=== PATIENT | female | born 1990 | race African-American/Black ===

== ENCOUNTER 2022-08-20 08:51 | Emergency (ER) | payer MEDICAID ==
[~2022-08-20] VITALS: Ht 162.6 cm; Wt 83.0 kg
[2022-08-20 08:59] VITALS: BP 151/79
[2022-08-20] MEDS ORDERED: PREDNISONE 20MG TABLET PO STA (09:12)
[2022-08-20] MEDS ORDERED: IPRATROPIUM BROMIDE (0.02%) 0.5MG/2.5ML NEB HHN STA (09:12)
[2022-08-20] MEDS ORDERED: ALBUTEROL (0.083%) 2.5MG/3ML NEB HHN STA (09:12)
[2022-08-20] MEDS ORDERED: P50 MT (10:00)
[2022-08-20] MEDS ORDERED: ALBU6.7H3 INH (10:00)
[2022-08-20] MEDS ORDERED: GUAI600T26 MT (10:00)
[2022-08-20] MEDS ORDERED: IBUP-2029 MT (10:05)
== END 2022-08-20 11:13 | disposition home or self-care (01) ==
LOC: ER 08:51
DX: J06.9 Acute upper respiratory infection, unspecified (principal); Z88.0 Allergy status to penicillin
CPT/HCPCS: 71045; 94644; 99285; J7512; Z7610

== ENCOUNTER 2022-11-19 11:11 | Emergency (ER) | payer MEDICAID ==
[~2022-11-19] VITALS: Ht 162.6 cm; Wt 85.4 kg
[~2022-11-19 11:11] MED LIST: ALBU6.7H3 INH; GUAI600T26 MT; IBUP-2029 MT; P50 MT
[2022-11-19 11:41] VITALS: BP 140/71
[2022-11-19] MEDS ORDERED: LIDOCAINE HCL/PF 1% 10 MG/ML 5ML VIAL INFIL ONE (12:00)
[2022-11-19] MEDS ORDERED: BACITRACIN ZINC OINT UDPKT TOP ONE (12:00)
[2022-11-19] MEDS ORDERED: TETANUS, DIPHTHERIA, PERTUSSIS VAC/PF 0.5ML (>10YR OLD) IM ONE (12:00)
[2022-11-19] MEDS ORDERED: ACETAMINOPHEN 325MG TABLET PO ONE (12:00)
[2022-11-19 12:25] LABS: CLARITY URINE CLOUDY (CLEAR); COLOR URINE YELLOW (YELLOW); KETONES URINE NEGATIVE (NEGATIVE); LEUKOCYTE ESTERASE URINE NEGATIVE (NEGATIVE); NITRITE URINE NEGATIVE (NEGATIVE); OCCULT BLOOD URINE TRACE (NEGATIVE); PH URINE 5.5 (4.5-8.0); PROTEIN URINE NEGATIVE (NEGATIVE); SPECIFIC GRAVITY URINE 1.025 (1.005-1.030); UROBILINOGEN URINE 0.2 E.U./dL (0.2-1.0)
[2022-11-19] MEDS ORDERED: ACET-2708 PO (13:38)
== END 2022-11-19 14:02 | disposition home or self-care (01) ==
LOC: ER 11:11
DX: S61.022A Laceration with foreign body of left thumb without damage to nail, initial encounter (principal); W26.9XXA Contact with unspecified sharp object(s), initial encounter; Y93.89 Activity, other specified; Y92.89 Other specified places as the place of occurrence of the external cause; Y99.8 Other external cause status
CPT/HCPCS: 81003; 81025; 90471; 90715; 99283; J3490; Z7610